=== PATIENT | female | born 1985 | race African-American/Black ===

== ENCOUNTER 2018-12-29 19:45 | Emergency (ER) | payer SELFPAY ==
[2018-12-29] MEDS: HYDROCODONE/APAP (5/325) TAB PO (20:07)
== END 2018-12-29 20:25 | disposition home or self-care (01) ==
LOC: FTE 19:45
DX: S02.5XXA Fracture of tooth (traumatic), initial encounter for closed fracture (principal); X58.XXXA Exposure to other specified factors, initial encounter; Y92.9 Unspecified place or not applicable
CPT/HCPCS: 99283